=== PATIENT | male | born 1965 | race African-American/Black ===

== ENCOUNTER 2024-10-28 09:46 | Emergency (ER) | payer MEDICAID, OTHER ==
[~2024-10-28] VITALS: Ht 190.5 cm; Wt 96.5 kg
[2024-10-28 10:24] VITALS: BP 136/115; PULSE 84; RESP 16; TEMP 98; O2SAT 98
[2024-10-28] MEDS: HYDROcodone-ACET 7.5/325MG TAB PO ONE (10:40)
[2024-10-28] MEDS ORDERED: METH-1181 PO (11:17)
[2024-10-28] MEDS ORDERED: NAPR-746 PO (11:17)
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
== END 2024-10-28 11:30 | disposition home or self-care (01) ==
LOC: ER 09:46
DX: S33.5XXA Sprain of ligaments of lumbar spine, initial encounter (principal); V89.2XXA Person injured in unspecified motor-vehicle accident, traffic, initial encounter; Y93.I9 Activity, other involving external motion; Y92.488 Other paved roadways as the place of occurrence of the external cause; Y99.8 Other external cause status